=== PATIENT | male | born 1940 | race Caucasian/White ===

== ENCOUNTER 2023-08-28 17:17 | Inpatient (IN) | payer MEDICARE, MEDICAID ==
[~2023-08-28] VITALS: Ht 180.3 cm; Wt 91.4 kg
[2023-08-28] MEDS ORDERED: LABETALOL HCL 5 MG/ML 20 ML VIAL IVP PRN ×2 (17:30)
[2023-08-28 17:45] LABS: BASOPHILS % (AUTO) 0.9 % (0.0-2.0); EOSINOPHILS % (AUTO) 5.6 % (1.0-6.0); HEMATOCRIT 32.3 % (41-53); HEMOGLOBIN 10.4 g/dL (13.5-17.5); LYMPHOCYTES # (AUTO) 0.6 K/uL (1.0-4.8); LYMPHOCYTES % (AUTO) 8.5 % (22.0-44.0); MEAN CORPUSCULAR HEMOGLOBIN 32.6 pg (26.0-34.0); MEAN CORPUSCULAR HGB CONC 32.3 G/dL (31.0-37.0); MEAN CORPUSCULAR VOLUME 101 fL (80-100); MONOCYTES # (AUTO) 0.6 K/uL (0.1-1.0); MONOCYTES % (AUTO) 8.8 % (2.0-9.0); NEUTROPHILS # (AUTO) 5.1 K/uL (1.8-7.7); NEUTROPHILS % (AUTO) 76.2 % (40.0-70.0); PLATELET COUNT (AUTO) 150 K/uL (150-450); RED CELL DISTRIBUTION WIDTH 15.7 % (11.5-14.5); WHITE BLOOD COUNT (AUTO) 6.7 K/uL (4.5-11.0)
[2023-08-28] MEDS ORDERED: IOHEXOL 350 MG/ML 100 ML VIAL ONE (17:50)
[2023-08-28] MEDS ORDERED: SODIUM CHLORIDE 0.9% 100 ML ONE (17:50)
[2023-08-28 17:54] LABS: RBC MORPHOLOGY COMMENT ABNORMAL RBC MORPH
[2023-08-28] MEDS ORDERED: IPRA0.2S49 NEB (17:56)
[2023-08-28] MEDS ORDERED: ONDA-104 PO (17:56)
[2023-08-28] MEDS ORDERED: CLOP75TA60 PO (17:56)
[2023-08-28] MEDS ORDERED: ALLO-97 PO (17:56)
[2023-08-28] MEDS ORDERED: HYDR10TA31 PO (17:56)
[2023-08-28] MEDS ORDERED: INSU100V SQ (17:56)
[2023-08-28] MEDS ORDERED: ISOS20TA9 PO (17:56)
[2023-08-28] MEDS ORDERED: BUME1TAB34 PO (17:56)
[2023-08-28] MEDS ORDERED: SITA100 PO (17:56)
[2023-08-28] MEDS ORDERED: GABA-1216 PO (17:56)
[2023-08-28] MEDS ORDERED: CALC0.253 PO (17:56)
[2023-08-28] MEDS ORDERED: LOVA20TA73 PO (17:56)
[2023-08-28 17:57] LABS: CALCIUM, TOTAL 8.3 mg/dL (8.8-10.5); CREATININE 4.77 mg/dL (0.60-1.30); POTASSIUM 4.7 mmol/L (3.5-5.1)
[2023-08-28 17:59] LABS: INR 1.2 (0.9-1.1); PROTHROMBIN TIME 12.4 SEC (9.4-11.6)
[2023-08-28] MEDS ORDERED: SEMA0.258 SQ (18:00)
[2023-08-28] MEDS ORDERED: CARV12.530 PO (18:00)
[2023-08-28 18:01] VITALS: PULSE 75; RESP 18; O2SAT 91
[2023-08-28 18:01] LABS: ALBUMIN 2.3 g/dL (3.4-5.0); BILIRUBIN,TOTAL 0.5 mg/dL (0.1-1.0); TOTAL PROTEIN, SERUM 6.4 g/dL (6.4-8.2)
[2023-08-28 18:03] VITALS: PULSE 67; RESP 23; O2SAT 99
[2023-08-28 18:03] LABS: TROPONIN I-HIGH SENSITIVITY 41 ng/L (<76)
[2023-08-28] MEDS ORDERED: ONDANSETRON HCL 4 MG/2 ML VIAL IVP PRN (19:00)
[2023-08-28] MEDS ORDERED: DEXTROSE 50%-WATER 25 GM/50 ML SYRINGE IVP PRN (19:00)
[2023-08-28] MEDS ORDERED: ACETAMINOPHEN 325 MG TABLET PO PRN (19:00)
[2023-08-28] MEDS ORDERED: INSULIN LISPRO 100 UNITS/ML SQ PRN (19:00)
[2023-08-28] MEDS ORDERED: BISACODYL 10 MG RECTAL RECTAL SUPPOSITORY PR PRN (19:00)
[2023-08-28 19:20] VITALS: PULSE 68; RESP 16; O2SAT 100
[2023-08-28 19:30] LABS: APPEARANCE,URINE CLEAR (CLEAR); BILIRUBIN,URINE NEGATIVE (NEGATIVE); COLOR,URINE LIGHT YELLOW (YELLOW); GLUCOSE, URINE (UA) NEGATIVE (NEGATIVE); KETONES,URINE NEGATIVE (NEGATIVE); LEUKOCYTE ESTERASE ,URINE SMALL (NEGATIVE); NITRATE,URINE NEGATIVE (NEGATIVE); OCCULT BLOOD,URINE LARGE (NEGATIVE); PROTEIN,URINE TRACE mg/dL (NEGATIVE); SPECIFIC GRAVITIY, URINE 1.015 (1.003-1.030); UROBILINOGEN,URINE <=1.0 mg/dL (<=1.0)
[2023-08-28 19:38] LABS: ABG BASE EXCESS 7.7 mmol/L (-2.0-3.0); ABG CARBOXYHEMOGLOBIN 1.5 % (0.0-1.5); ABG HCO3 30.1 mmol/L (22.0-26.0); ABG METHEMOGLOBIN 0.3 % (0.0-1.5); ABG OXYGEN CONTENT 15.9 mL/dL (15.0-23.0); ABG OXYHEMOGLOBIN 97.2 % (94.0-100.0); ABG PCO2 62 mmHg (35-45); ABG PH 7.351 (7.35-7.450); ABG TOTAL HEMOGLOBIN 11.4 G/dL (12.0-18.0); ALLEN TEST, BLOOD GAS Positive; O2 DEVICE,BLOOD GAS BIPAP (ROOM AIR); PO2, ARTERIAL BG 157.4 mmHg (71.0-79.0); SITE, BLOOD GAS LFT RADIAL; SOURCE, BLOOD GAS ARTERIAL; TEMPERATURE, FAHRENHEIT, BG 98.6 FAHREN (96.0-98.6)
[2023-08-28 19:38] LABS: AMPHET/METH SCREEN,URINE NEGATIVE (NEGATIVE); BARBITURATE SCREEN, URINE NEGATIVE (NEGATIVE); BENZODIAZEPINES SCREEN,URINE NEGATIVE (NEGATIVE); CANNABINOID SCREEN,URINE NEGATIVE (NEGATIVE); COCAINE SCREEN,URINE NEGATIVE (NEGATIVE); METHADONE SCREEN, URINE NEGATIVE (NEGATIVE); OPIATE SCREEN,URINE NEGATIVE (NEGATIVE); PHENCYCLIDINE SCREEN,URINE NEGATIVE (NEGATIVE)
[2023-08-28 19:41] LABS: BACTERIA,URINE Rare /HPF (None Seen)
[2023-08-28 19:51] LABS: COVID AG,FIA SOURCE NASAL SWAB
[2023-08-28] MEDS ORDERED: CefTRIAXone 1 GM/DEXTROSE 50 ML IV ONE (20:00)
[2023-08-28 20:10] LABS: INFLUENZA TYPE A NEGATIVE FOR TYPE A (NEGATIVE); INFLUENZA TYPE B NEGATIVE FOR TYPE B (NEGATIVE); SARS-COV2 (COVID) ANTIGEN,FIA Negative (Negative)
[2023-08-29] VITALS: BP 124/61; PULSE 83; RESP 17; TEMP 98.1
[2023-08-29 04:00] VITALS: BP 113/66; PULSE 79; RESP 16; TEMP 97.7
[2023-08-29 05:48] VITALS: PULSE 68; RESP 16; O2SAT 100
[2023-08-29 07:57] VITALS: BP 100/60; PULSE 85; RESP 18; TEMP 98
[2023-08-29] MEDS: HEPARIN SODIUM,PORCINE 5,000 UNITS/ML VIAL SQ SCH ×3 (08:45→16:27)
[2023-08-29] MEDS ORDERED: FUROSEMIDE 20 MG/2 ML VIAL IVP SCH (09:00)
[2023-08-29] MEDS ORDERED: FAMOTIDINE 20 MG TABLET PO SCH (09:00)
[2023-08-29 11:19] LABS: CALCIUM, TOTAL 8.2 mg/dL (8.8-10.5); CREATININE 4.41 mg/dL (0.60-1.30); POTASSIUM 4.4 mmol/L (3.5-5.1)
[2023-08-29 11:24] LABS: MAGNESIUM 2.8 mg/dL (1.80-2.40); PHOSPHORUS 5.9 mg/dL (2.5-4.9)
[2023-08-29 11:48] VITALS: BP 120/64; PULSE 86; RESP 18; TEMP 98.1
[2023-08-29 12:51] LABS: GLUCOMETER DEV NAME(LOC) 5N.2C; GLUCOSE,POINT OF CARE 161 MG/DL (70-110)
[2023-08-29 12:51] LABS: GLUCOMETER DEV NAME(LOC) 5N.2C; GLUCOSE,POINT OF CARE 152 MG/DL (70-110)
[2023-08-29 15:41] VITALS: BP 126/59; PULSE 87; RESP 18; TEMP 97.6
[2023-08-29] MEDS ORDERED: CALCIUM ACETATE 667 MG CAPSULE PO SCH (18:00)
[2023-08-29 22:41] LABS: GLUCOMETER DEV NAME(LOC) 5S.1B; GLUCOSE,POINT OF CARE 130 MG/DL (70-110)
[2023-08-30 07:07] LABS: PARATHYROID HORMONE INTACT 112 pg/mL (15-65)
[2023-08-30] MEDS ORDERED: CALCITRIOL 0.25 MCG CAPSULE PO SCH (09:00)
== END 2023-08-29 18:10 | disposition short-term general hospital (02) | DRG 189 ==
LOC: EMS 17:18 → 5S 21:00
PROVIDERS: ADMIT Internal Medicine; ATTEND Internal Medicine
PROC: 5A09357 Assistance with Respiratory Ventilation, Less than 24 Consecutive Hours, Continuous Positive Airway Pressure (ICD-10-PCS; principal; 2023-08-28)
PROC: 5A09357 Assistance with Respiratory Ventilation, Less than 24 Consecutive Hours, Continuous Positive Airway Pressure (ICD-10-PCS; 2023-08-29)
DX: J96.21 Acute and chronic respiratory failure with hypoxia (principal); G93.41 Metabolic encephalopathy; E43 Unspecified severe protein-calorie malnutrition; N18.6 End stage renal disease; I50.43 Acute on chronic combined systolic (congestive) and diastolic (congestive) heart failure; I13.2 Hypertensive heart and chronic kidney disease with heart failure and with stage 5 chronic kidney disease, or end stage renal disease; N39.0 Urinary tract infection, site not specified; N17.9 Acute kidney failure, unspecified; Z66 Do not resuscitate; Z20.822 Contact with and (suspected) exposure to COVID-19; J96.22 Acute and chronic respiratory failure with hypercapnia; E11.22 Type 2 diabetes mellitus with diabetic chronic kidney disease; E11.40 Type 2 diabetes mellitus with diabetic neuropathy, unspecified; I49.5 Sick sinus syndrome; R62.7 Adult failure to thrive; E11.51 Type 2 diabetes mellitus with diabetic peripheral angiopathy without gangrene; E78.00 Pure hypercholesterolemia, unspecified; I25.10 Atherosclerotic heart disease of native coronary artery without angina pectoris; F03.90 Unspecified dementia, unspecified severity, without behavioral disturbance, psychotic disturbance, mood disturbance, and anxiety; J44.9 Chronic obstructive pulmonary disease, unspecified; D63.1 Anemia in chronic kidney disease; G47.33 Obstructive sleep apnea (adult) (pediatric); D64.9 Anemia, unspecified; M81.0 Age-related osteoporosis without current pathological fracture; Z83.3 Family history of diabetes mellitus; Z86.73 Personal history of transient ischemic attack (TIA), and cerebral infarction without residual deficits; Z99.2 Dependence on renal dialysis; Z99.81 Dependence on supplemental oxygen; Z82.49 Family history of ischemic heart disease and other diseases of the circulatory system; Z95.810 Presence of automatic (implantable) cardiac defibrillator; Z68.28 Body mass index [BMI] 28.0-28.9, adult; Z87.891 Personal history of nicotine dependence; Z85.810 Personal history of malignant neoplasm of tongue; Z51.5 Encounter for palliative care; I25.2 Old myocardial infarction; Z91.81 History of falling
CPT/HCPCS: 70496; 70498; 71045; 80048; 80053; 80307; 81001; 82805; 82948; 82962; 83735; 83970; 84100; 84484; 85025; 85610; 85730; 87081; 87086; 87186; 87804; 92523; 92610; 93005; 94660; 99291; J0696; J1644; J1940; J7050; Q9967; 36415-L1; 36415-TC; 70450; 70450-TC; 82803-TC